=== PATIENT | female | born 1970 ===

== ENCOUNTER 2018-02-12 13:21 | Outpatient (CLI) | payer SELFPAY | END 2018-02-12 13:22 | disposition home or self-care (01) | LOC: C.CARD 13:21 | DX: Z01.818 Encounter for other preprocedural examination (principal) ==

== ENCOUNTER 2018-02-14 08:19 | Outpatient (CLI) | payer SELFPAY | END 2018-02-14 08:20 | disposition home or self-care (01) | LOC: C.LAB 08:19 | DX: I10 Essential (primary) hypertension (principal); Z12.11 Encounter for screening for malignant neoplasm of colon; Z68.30 Body mass index [BMI] 30.0-30.9, adult ==